=== PATIENT | female | born 1935 | race African-American/Black ===

== ENCOUNTER 2016-06-20 10:34 | Emergency (ER) | payer OTHER ==
[2016-06-20 10:52] VITALS: BP 142/77; PULSE 87; BMI 24.1
[2016-06-20] MEDS ORDERED: oxyCODONE HCL 20 MG SUSTAINED ACTING TABLET PO ONE (11:23)
--- NOTE | 2016-06-20 11:27 | PDOC ---
History of Present Illness <Layton Navarro - Last Filed: 06/20/16 11:24> - General History Source: Patient Exam Limitations: No Limitations - History of Present Illness Initial Comments: 06/20/16 11:28 The patient is a 81 year old with female with a significant past medical history of chronic back pain who presents to the ED with complaints of lower back pain and constipation for 6 days. The patient reports taking more oxycontin and oxycodone than usual secondary to her lower back pain. Patient reports a loss of appetite and constipation secondary to an increase in her narcotics. She states she was only able to pass one small bowel movement in the past 6 days. The patient also reports taking prune juice for her constipation with no relief. The patient reports she ran out of her pain management medication. Denies abdominal pain, nausea, vomiting. Denies fevers or chills. Denies chest pain or shortness of breath. Denies dysuria or difficulty urinating. Denies head pain or neck pain. Denies any other symptoms. Past medical history: hypertension, herniated disc, colitis <Yvonne Mahmood - Last Filed: 06/20/16 11:29> - General Chief Complaint: Pain Stated Complaint: BACK PAIN Time Seen by Provider: 06/20/16 11:00 Past History - Past Medical History GI Disorders: Yes (colitis) HTN: Yes Hypercholesterolemia: Yes Other medical history: chronic back pain - Surgical History Appendectomy: Yes - Psycho/Social/Smoking Cessation Hx Anxiety: No Suicidal Ideation: No Smoking History: Never smoked Have you smoked in the past 12 months: No Information on smoking cessation initiated: No Hx Alcohol Use: No Drug/Substance Use Hx: No Substance Use Type: None Hx Substance Use Treatment: No <Layton Navarro - Last Filed: 06/20/16 11:24> <Yvonne Mahmood - Last Filed: 06/20/16 11:29> - Past Medical History Allergies/Adverse Reactions: Allergies Allergy/AdvReac Type Severity Reaction Status Date / Time Iodinated Contrast Media - Allergy Verified 06/20/16 11:17 Oral and [Iodinated Contrast Media - IV Dye] orange juice [Felton Juice] Allergy Verified 06/20/16 11:17 shellfish derived Allergy Swelling Verified 06/20/16 11:17 Home Medications: Ambulatory Orders Lansoprazole 30 mg PO DAILY #0 capsule. 05/24/13 Olmesartan Medoxomil [Benicar -] 40 mg PO DAILY #0 tablet 05/24/13 Nitrofurantoin Monohyd/M-Cryst [Macrobid -] 100 mg PO BID #14 capsule 11/14/13 Oxycodone Sr [Oxycontin] 20 mg PO BID #6 tab.er.12h MDD 2 02/18/16 Amlodipine Besylate [Norvasc -] 5 mg PO DAILY 06/20/16 Aspirin [ASA -] 81 mg PO DAILY 06/20/16 Iron 325 mg PO DAILY 06/20/16 Oxycodone HCl/Acetaminophen [Percocet 5-325 mg Tablet] 1 tab PO Q12H 06/20/16 Review of Systems - Review of Systems Able to Perform ROS?: Yes Comments:: 06/20/16 11:28 GENERAL/CONSTITUTIONAL: No fever or chills. No weakness. HEAD, EYES, EARS, NOSE AND THROAT: No change in vision. No ear pain or discharge. No sore throat. CARDIOVASCULAR: No chest pain or shortness of breath. RESPIRATORY: No cough, wheezing, or hemoptysis. GASTROINTESTINAL: + constipation.No nausea, vomiting, diarrhea. GENITOURINARY: No dysuria, frequency, or change in urination. MUSCULOSKELETAL:+ back pain. No joint or muscle swelling or pain. No neck pain. SKIN: No rash NEUROLOGIC: No headache, vertigo, loss of consciousness, or change in strength/ sensation. ENDOCRINE: No increased thirst. No abnormal weight change. HEMATOLOGIC/LYMPHATIC: No anemia, easy bleeding, or history of blood clots. ALLERGIC/IMMUNOLOGIC: No hives or skin allergy. All Other Systems: Reviewed and Negative <Yvonne Mahmood - Last Filed: 06/20/16 11:29> *Physical Exam - Vital Signs Last Vital Signs Temp Pulse Resp BP Pulse Ox 99.8 F H 87 22 142/77 100 06/20/16 10:47 06/20/16 10:47 06/20/16 10:47 06/20/16 10:47 06/20/16 10:47 <Layton Navarro - Last Filed: 06/20/16 11:24> - Vital Signs Last Vital Signs Temp Pulse Resp BP Pulse Ox 99.8 F H 87 22 142/77 100 06/20/16 10:47 06/20/16 10:47 06/20/16 10:47 06/20/16 10:47 06/20/16 10:47 - Physical Exam Comments: 06/20/16 11:28 GENERAL: Awake, alert, and fully oriented, in no acute distress HEAD: No signs of trauma EYES: PERRLA, EOMI, sclera anicteric, conjunctiva clear ENT: Auricles normal inspection, hearing grossly normal, nares patent, oropharynx clear without exudates. Moist mucosa NECK: Normal ROM, supple, no lymphadenopathy, JVD, or masses LUNGS: Breath sounds equal, clear to auscultation bilaterally. No wheezes, and no crackles HEART: Regular rate and rhythm, normal S1 and S2, no murmurs, rubs or gallops ABDOMEN: Soft, nontender, normoactive bowel sounds. No guarding, no rebound. No masses EXTREMITIES: Normal range of motion, no edema. No clubbing or cyanosis. No cords, erythema, or tenderness NEUROLOGICAL: Cranial nerves II through XII grossly intact. Normal speech, normal gait SKIN: Warm, Dry, normal turgor, no rashes or lesions noted. <Yvonne Mahmood - Last Filed: 06/20/16 11:29> Medical Decision Making - Medical Decision Making 06/20/16 11:28 Patient refused treatment. <Yvonne Mahmood - Last Filed: 06/20/16 11:29> *DC/Admit/Observation/Transfer - Discharge Dispostion Admit: No <Layton Navarro - Last Filed: 06/20/16 11:24> - Attestations Scribe Attestion: 06/20/16 11:29 Documentation prepared by Yvonne Mahmood, acting as medical services manager for Layton Navarro MD <Yvonne Mahmood - Last Filed: 06/20/16 11:29> Diagnosis at time of Disposition: Overuse of medication, Constipation due to pain medication - Discharge Dispostion Disposition: HOME Condition at time of disposition: Good - Referrals Referrals: Diego Borja [Primary Care Provider] - - Patient Instructions Additional Instructions: I am sorry that you have overused your pain medicine and are constipated now. I am also sorry that you dont want any treatment now that you understand that I can not give you any pain medicine. Return to us if you change your mind. I did try to call Dr. Oneill - I could not find a number for him that works. Work with him or your primary care doctor. Best- Dr. Layton Navarro
[2016-06-20 11:34] VITALS: TEMP 97.8
[2016-06-21] MEDS ORDERED: Methylnaltrexone Bromide 12 MG/0.6 ML KIT SQ ONE (12:00)
== END 2016-06-20 11:37 | disposition home or self-care (01) ==
LOC: JER 10:34
DX: M54.5 Low back pain (principal); K59.03 Drug induced constipation; T40.2X5A Adverse effect of other opioids, initial encounter; Y92.039 Unspecified place in apartment as the place of occurrence of the external cause; I10 Essential (primary) hypertension; E78.5 Hyperlipidemia, unspecified
CPT/HCPCS: 99282-25